=== PATIENT | female | born 1975 | race Hispanic/Latino ===

== ENCOUNTER 2025-06-29 16:44 | Emergency (ER) | payer MEDICAID, OTHER ==
[~2025-06-29] VITALS: Ht 160 cm; Wt 95.3 kg
--- NOTE | 2025-06-29 16:52 | ERN ---
ED Note History of Present Illness Stated Complaint: UTI Chief Complaint: UTI without Fever Time Seen by MD: 16:47 Dictation: PATIENT IS A 50-YEAR-OLD FEMALE HERE WITH COMPLAINTS OF SUPRAPUBIC PAIN WITH HEMATURIA THAT HAS BEEN OFF AND ON FOR THE LAST TWO MONTHS. SHE DENIES FEVER CHILLS NAUSEA VOMITING. NO FLANK PAIN. HER DOCTOR IS WILL MCKEON HOWEVER SHE HAS NOT BEEN OUT TO SEE THEM SHE JUST TAKES AZO [id number] ON-CALL Allergies: Coded Allergies: No Known Drug Allergies (Unverified Allergy, Unknown, 06/29/25) Past Medical History Past Medical History: Diabetes-Type II, Hypertension Surgical History: Cholecystectomy History: Not Applicable RN Note Reviewed/Agreed w/PFSH: Yes Review of System Dictation CONSTITUTIONAL: NEGATIVE EXCEPT FOR HPI HEAD/FACE: NEGATIVE EXCEPT FOR HPI EENT: NEGATIVE EXCEPT FOR HPI RESPIRATORY: NEGATIVE EXCEPT FOR HPI GASTROINTESTINAL/ABDOMINAL: NEGATIVE EXCEPT FOR HPI GENITOURINARY: NEGATIVE EXCEPT FOR HPI HEMATURIA WITH SUPRAPUBIC TENDERNESS MUSCULOSKELETAL: NEGATIVE EXCEPT FOR HPI INTEGUMENTARY: NEGATIVE EXCEPT FOR HPI NEUROLOGICAL/PSYCH: NEGATIVE EXCEPT FOR HPI HEMATOLOGIC/LYMPHATIC: NEGATIVE EXCEPT FOR HPI ALL SYSTEMS NEGATIVE, EXCEPT NOTED ABOVE. 13 POINT REVIEW OF SYSTEMS ASSESSED AND ALL NEGATIVE EXCEPT FOR ABOVE. Initial Vital Sign VS Vital Signs Date Time Temp Pulse Resp B/P (MAP) Pulse Ox O2 Delivery O2 Flow Rate FiO2 06/29/25 16:45 99.0 102 20 183/90 97 Room Air Physical Exam Dictation VITAL SIGNS REVIEWED GENERAL APPEARANCE: ALERT, ORIENTED X 3, MODERATE ACUTE DISTRESS, WELL DEVELOPED, NOURISHED. OBESE HEAD AND FACE: NON-TRAUMATIC. EYES: PERRL, PINK CONJUNCTIVAS, EYELID NO TRAUMA, ANTERIOR CHAMBER WITH ARCUS SENILIS. EARS: PINNAS INTACT AND NO SIGNS OF TRAUMA OR ERYTHEMA EAR CANALS CLEAR AND NO DISCHARGE TM NO ERYTHEMA NOSE: NO DISCHARGE, NO BLEEDING. OROPHARYNX: MOUTH NORMAL, TONGUE PINK, PHARYNX CLEAR,NO ERYTHEMA, TONSILS NO EXUDATES, NO ABSCESSES NOTED, MUCOUS MEMBRANE MOIST NECK: SUPPLE, NON-TENDER, NO THYROMEGALY, NO MASSES, NO JVD, NO BRUITS BREAST:DEFERRED CHEST:NO TENDERNESS, NO CREPITUS, NO PARADOXICAL MOVEMENT, NO RETRACTIONS LUNGS:CLEAR, WELL-VENTILATED, SYMMETRIC, NO RALES, NO WHEEZING, NO RHONCHI, NO STRIDOR, GOOD BREATH SOUNDS BILATERALLY HEART: REGULAR RATE, REGULAR RHYTHM, NO MURMUR, NO GALLOPS VASCULAR: NO PERIPHERAL EDEMA, ABDOMEN: SOFT, POSITIVE BOWEL SOUNDS, NONDISTENDED, NO GUARDING, NONTENDER, NO REBOUND, NO MASSES NO HEPATOMEGALY, NO SPLENOMEGALY, NO MELGAR'S SIGN, NO HERNIAS. NEGATIVE CVAT BY RECTAL: DEFERRED GENITAL: DEFERRED MILD SUPRAPUBIC TENDERNESS WITH PALPATION. PALPATION OVER HER CLOSED. NEUROLOGICAL: NORMAL SPEECH, MOTOR FUNCTION INTACT, SENSORY FUNCTION INTACT MUSCULOSKELETAL: NECK NONTENDER, FULL RANGE OF MOTION, BACK NONTENDER, FULL RANGE OF MOTION, EXTREMITIES: NONTENDER, FULL RANGE OF MOTION SKIN: COLOR PINK, DRY, NO TURGOR, NO RASH, NO LACERATIONS, NO ABRASIONS, NO CONTUSIONS. LYMPHATIC: DEFERRED Results (Laboratory/Radiology) Laboratory/Radiology Laboratory Tests Test 06/29/25 16:50 Urine Color DARK-YELLOW (YELLOW) Urine Appearance CLOUDY (CLEAR) H Urine pH 5.5 (5.0-8.0) Urine Specific [place] 1.015 (1.001-1.031) Urine Protein NEGATIVE mg/dL (NEGATIVE) Urine Glucose (UA) >=1000 mg/dL (NEGATIVE) H Urine Ketones 20 mg/dL (NEGATIVE) H Urine Occult Blood LARGE (NEGATIVE) H Urine Nitrate 1+ (NEGATIVE) H Urine Bilirubin NEGATIVE mg/dL (NEGATIVE) Urine Urobilinogen 0.2 mg/dL (0.2-1.0) Urine Leukocyte Esterase 500 Igor/uL (NEGATIVE) H Urine RBC 51-100 /HPF (0-1) H Urine WBC 51-100 /HPF (0-1) H Urine WBC Clumps (Auto) RARE /HPF (0-1) Urine Squamous Epithelial Cells RARE /HPF (0-2) Urine Bacteria FEW /HPF (None Seen) Labs Reviewed?: Yes ED Course ED Course Orders Procedure Category Date Status Time Hydrocodone/Apap PHA 06/29/25 Complete 5/325 ([place] 5/325mg) 17:00 Phenazopyridine Hcl PHA 06/29/25 Complete 200 Mg Tab (Pyridium 17:00 Urinalysis Profile LAB 06/29/25 Complete 16:50 Culture Urine SAMIRA 06/29/25 In Process 17:30 Amox/Clav 875/125mg PHA 06/29/25 Complete Tab (Augmentin 875-1 18:00 Current Medications Medications (Trade) Dose Ordered Sig/Cody Route PRN Reason Start Time Stop Time Status Last Admin Dose Admin Acetaminophen/ Hydrocodone Bitart (NORco 5/325MG) 1 tab ONCE ONCE PO 06/29/25 17:00 06/29/25 17:01 DC Amoxicillin/ Clavulanate Potassium (Augmentin 875-125 Tablet) 1 each ONCE ONCE PO 06/29/25 18:00 06/29/25 18:01 DC Phenazopyridine HCl (PYRIdium HCL 200 MG TAB) 200 mg ONCE ONCE PO 06/29/25 17:00 06/29/25 17:01 DC Vital Signs Date Time Temp Pulse Resp B/P (MAP) Pulse Ox O2 Delivery O2 Flow Rate FiO2 06/29/25 16:45 99.0 102 20 183/90 97 Room Air PATIENT POSITIVE FOR ACUTE CYSTITIS WITH HEMATURIA. SHE WAS LOADED WITH THE AUGMENTIN 875 DISCHARGED HOME TO FOLLOW UP WITH HER DOCTOR NEXT 1-2 DAYS Medical Decision Making MDM MEDICAL DECISION-MAKING BASED ON URINALYSIS FROM [facility] PATIENT HAS A ACUTE CYSTITIS WITH HEMATURIA PAIN WAS MANAGED IN THE EMERGENCY ROOM PATIENT LOADED WITH THE AUGMENTIN 875 SENT HOME WITH SAME AND PYRIDIUM WITH IBUPROFEN TOLD SEE HER PRIMARY CARE DOCTOR MONDAY OR MONDAY DX & DISP Disposition: Discharge Departure Impression: Primary Impression: Acute cystitis with hematuria Additional Impression: Dysuria Condition: Stable Scripts Phenazopyridine HCl (Pyridium) 200 Mg Tab 200 MG PO TIDPC for 3 Days, #9 TAB TAKE WITH FOOD TO PREVENT STOMACH UPSET. Prov: KATHLEEN GONZALEZP 06/29/25 Ibuprofen (Ibuprofen 800 mg Tab) 800 Mg Tab 800 MG PO Q8H PRN for fever or pain, #30 TAB 0 Refills Prov: KATHLEEN GONZALEZP 06/29/25 Amoxicillin/Potassium Clav (Amox Tr-K Clv 875-125 mg Tab) 875 Mg-125 Mg Tablet 1 EACH PO BID for 5 Days, #10 TAB 0 Refills Prov: KATHLEEN GONZALEZP 06/29/25 Additional Instructions: FOLLOW-UP WITH PRIMARY CARE PROVIDER IN 1 TO 2 DAYS. TAKE MEDICATIONS DIRECTED HERE IN THE EMERGENCY ROOM. OKAY TO CONTINUE HOME MEDICATIONS UNLESS OTHERWISE DISCUSSED DURING YOUR VISIT IN THE EMERGENCY ROOM TODAY. RETURN TO YOUR NEAREST EMERGENCY ROOM IF SYMPTOMS WORSEN OR IF THERE IS NO IMPROVEMENT. CALL 911 IF YOU NEED IMMEDIATE ASSISTANCE. TAKE TYLENOL OR MOTRIN [id number] NEEDED AND IF NO CONTRAINDICATIONS ARE PRESENT. INCREASE ORAL HYDRATION. A WOUND CULTURE OR URINE CULTURE WAS ORDERED HERE IN THE EMERGENCY ROOM DEPARTMENT PLEASE FOLLOW-UP WITH PRIMARY CARE PROVIDER AND ADVISE THEM TO GET REPEAT PORTS FROM OUR FACILITY. IF YOU HAD ANY SHIRA WRAP/SPLINTS THAT WERE APPLIED HERE, PLEASE DO NOT REMOVE THEM UNTIL YOU SEE YOUR PRIMARY CARE OR SPECIALTY. TAKE AUGMENTIN DIRECTED UNTIL GONE. TAKE PYRIDIUM DIRECTED UNTIL GONE, REMEMBER IT WILL TURN YOUR URINE ORANGE RED. INCREASE YOUR WATER INTAKE. SEE YOUR DOCTOR FOR FOLLOW UP IN THE NEXT 1-2 DAYS Time of Disposition: 18:36 I have reviewed the case, and I agree with, Diagnosis and Plan KATHLEEN GONZALEZP Jun 29, 2025 16:52
[2025-06-29 17:29] LABS: APPEARANCE,URINE CLOUDY (CLEAR); GLUCOSE, URINE (UA) >=1000 mg/dL (NEGATIVE); LEUKOCYTE ESTERASE ,URINE 500 Leu/uL (NEGATIVE); NITRATE,URINE 1+ (NEGATIVE); OCCULT BLOOD,URINE LARGE (NEGATIVE)
[2025-06-29 17:30] LABS: ADD UA MICROSCOPIC YES
[2025-06-29 17:32] LABS: SQUAMOUS EPITHELIAL CELL,UR RARE /HPF (0-2); WBC CLUMP RARE /HPF (0-1)
[2025-06-29] MEDS ORDERED: PHEN-847 PO (18:37)
[2025-06-29] MEDS ORDERED: IBUP-2077 PO (18:37)
[2025-06-29] MEDS ORDERED: AMOX1TAB16 PO (18:37)
[2025-06-29 19:06] VITALS: BP 168/74; PULSE 92; RESP 20; TEMP 98.9; O2SAT 97
[2025-06-29] MEDS: HYDROcodone/APAP 5/325 1 TAB TABLET PO ONE (19:20)
[2025-06-29] MEDS: AMOX/CLAV 875/125MG TAB PO ONE (19:21)
[2025-06-29] MEDS: PHENAZOpyridine HCL 200 MG TAB 200 MG TABLET PO ONE (19:21)
== END 2025-06-29 19:29 | disposition home or self-care (01) ==
LOC: EDH 16:44
DX: N30.01 Acute cystitis with hematuria (principal); E11.9 Type 2 diabetes mellitus without complications; I10 Essential (primary) hypertension; R30.0 Dysuria; E66.9 Obesity, unspecified; Z68.37 Body mass index [BMI] 37.0-37.9, adult; Z90.49 Acquired absence of other specified parts of digestive tract
CPT/HCPCS: 81001; 87086; 87186; 99284